=== PATIENT | female | born 1965 | race Caucasian/White ===

== ENCOUNTER 2024-03-14 10:35 | Emergency (ER) | payer MEDICAID, OTHER ==
[2024-03-14 10:44] VITALS: BP 188/94; O2SAT 99
[2024-03-14 11:01] LABS: BILIRUBIN,URINE NEGATIVE (NEGATIVE); GLUCOSE, URINE (UA) NEGATIVE (NEGATIVE); KETONES,URINE (UA) NEGATIVE (NEGATIVE); LEUKOCYTE ESTERASE, URINE NEGATIVE (NEGATIVE); NITRITE,URINE NEGATIVE (NEGATIVE); OCCULT BLOOD,URINE NEGATIVE (NEGATIVE); PROTEIN,URINE NEGATIVE (NEGATIVE); UROBILINOGEN,URINE 0.2 (NORMAL) E.U./dL (NORMAL)
[2024-03-14 11:02] LABS: CLARITY,URINE CLEAR (CLEAR)
--- NOTE | 2024-03-14 11:11 | ED Physician Documentation ---
History of Present Illness - Stated complaint Stated Complaint: - Chief complaint Chief Complaint: UTI - History obtained from History obtained from: Patient - History of Present Illness Timing: Prior to arrival - Additonal information Additional information: Patient is a 58-year-old female presenting to the emergency department with intermittent burning with urination and frequency. Patient notes symptoms have been on and off for the past weeks. She is currently visiting her mother from out of town. She notes severe symptoms with urination. She denies any fevers or chills. She notes she has had a history of UTIs in the past and this feels similar. She denies any flank pain associated with her symptoms. No nausea or vomiting. She notes no abdominal pain associated with symptoms. She notes she has had a history of a hysterectomy and notes that this has subsequently increased her history of UTIs. PD PAST MEDICAL HISTORY - Past Medical History Past Medical History: No Cardiovascular: None Respiratory: None Neuro: None Endocrine/Autoimmune: None GI: None BIOASSAYIST: None : None HEENT: None Psych: None Musculoskeletal: None Derm: None - Past Surgical History Past Surgical History: Yes /BIOASSAYIST: Hysterectomy, Breast implants - Present Medications Home Medications: Ambulatory Orders Medication Instructions Recorded Confirmed metroNIDAZOLE [Flagyl] 500 mg PO BID 7 Days #14 tablet 03/14/24 - Allergies Allergies/Adverse Reactions: Allergies Allergy/AdvReac Type Severity Reaction Status Date / Time Sulfa (Sulfonamide Allergy Rash Verified 03/14/24 10:37 Antibiotics) - Social History Does the pt smoke?: No Smoking Status: Never smoker Does the pt drink ETOH?: No Does the pt have substance abuse?: No - Immunizations Immunizations are current?: Yes - POLST Patient has POLST: No PD ED PE NORMAL - Vitals Vital signs reviewed: Yes - General General: Alert and oriented X 3 - HEENT HEENT: Atraumatic - Neck Neck: Supple, no meningeal sign - Cardiac Cardiac: RRR, No murmur, No gallop, No rub - Respiratory Respiratory: No respiratory distress, Clear bilaterally - Abdomen Abdomen: Normal bowel sounds, Soft, Non tender, Non distended - Rectal Rectal: Deferred - Back Back: No CVA TTP - Derm Derm: Normal color, No rash - Extremities Extremities: No deformity - Neuro Neuro: Alert and oriented X 3 Eye Opening: Spontaneous Motor: Obeys Commands Verbal: Oriented GCS Score: 15 - Psych Psych: Normal mood Results - Vitals Vitals: Vital Signs - 24 hr 03/14/24 10:38 Temperature 36.4 C L Heart Rate 69 Respiratory 16 Rate Blood Pressure 188/94 H O2 Saturation 99 Oxygen O2 Source Room air - Labs Labs: Laboratory Tests 03/14/24 03/14/24 10:52 11:50 Urine Color YELLOW Urine Clarity CLEAR Urine pH 7.0 Ur Specific Cecil 1.010 Urine Protein NEGATIVE Urine Glucose (UA) NEGATIVE Urine Ketones NEGATIVE Urine Occult Blood NEGATIVE Urine Nitrite NEGATIVE Urine Bilirubin NEGATIVE Urine Urobilinogen 0.2 (NORMAL) Ur Leukocyte Esterase NEGATIVE Ur Microscopic Review NOT INDICATED Urine Culture Comments NOT INDICATED C. glabrata (PCR) NEGATIVE C. krusei (PCR) NEGATIVE Rahel species DNA NEGATIVE T. vaginalis (PCR) NEGATIVE Bact Vaginosis (PCR) POSITIVE A PD Medical Decision Making - ED course Complexity details: reviewed old records, reviewed results ED course: Patient is a 58-year-old female presenting to the emergency department with frequency with urination and burning with urination. Symptoms have been going on and off for the past few weeks but worsened this morning. Patient currently visiting her mother out of town mainly from [place]. She notes she has had UTIs in the past and today symptoms feel similar. No associated flank pain no fevers or chills. No history of kidney stones. Patient does have history of hysterectomy and she notes this seems to worsen her symptoms. Vital stable on arrival she is afebrile nontachycardic. Labs obtained here in emergency department for urine analysis show no signs of UTI. Discussed with patient this is a reassuring finding no white blood cells no leukocyte esterase. Discussed with patient she notes she feels she may be having pelvic floor dysfunction as well and this is something she will follow-up with when she returns home. Discussed with patient she has no concerns for STDs today is willing to self swab for bacterial vaginosis but she has no concerns for yeast infection no discharge no vaginal bleeding. Patient tested positive for bacterial vaginosis. Will start patient on metronidazole. She is instructed to not drink while on this medication. She is agreeable with taking this medication and will also try [id number] for phenazopyridine for persistent symptoms Of dysuria. This could explain patient's symptoms though given they have been on and off for few weeks and her urine analysis is negative. Patient agreeable with this plan. She will return with any flank pain fevers vaginal pain or bleeding or any other new or worsening symptoms. Patient understands and is agreeable with this plan. Departure - Departure Disposition: 01 Home, Self Care Clinical Impression: Bacterial vaginosis Condition: Good Instructions: ED Vaginosis Bacterial Comments: You were seen here in the emergency department for your urinary symptoms and frequency. With your occasional burning. Your urine analysis was negative but you did test positive for bacterial vaginosis this may be causing your symptoms you should try [id number] phenazopyridine for your symptoms as well and if symptoms persist you can return to the emergency department if you develop any fevers flank pain nausea vomiting vaginal bleeding or any other new or worsening symptoms please return to the emergency department. We discussed possible STD testing but you declined at this time please follow-up with your PCP within the next week for further testing. Forms: PCP List
[2024-03-14 13:38] LABS: BACTERIAL VAGINOSIS DNA POSITIVE (NEGATIVE); CANDIDA GLABRATA DNA NEGATIVE (NEGATIVE); CANDIDA GROUP DNA NEGATIVE (NEGATIVE); CANDIDA KRUSEI DNA NEGATIVE (NEGATIVE); TRICHOMONAS VAGINALIS DNA NEGATIVE (NEGATIVE)
[2024-03-14] MEDS: metroNIDAZOLE 250 MG TABLET PO STA (13:52)
== END 2024-03-14 13:55 | disposition home or self-care (01) ==
LOC: ED 10:35
DX: N76.0 Acute vaginitis (principal)
CPT/HCPCS: 81003; 81514; 99283; A9270; 81001; 87086